=== PATIENT | female | born 1990 | race Caucasian/White ===

== ENCOUNTER 2019-01-03 23:06 | Emergency (ER) | payer OTHER ==
[~2019-01-03] VITALS: Ht 177.8 cm; Wt 55.0 kg
[2019-01-03 23:12] VITALS: BP 119/82
== END 2019-01-04 00:09 | disposition home or self-care (01) ==
LOC: ER 23:07
DX: S51.812D Laceration without foreign body of left forearm, subsequent encounter (principal); X58.XXXD Exposure to other specified factors, subsequent encounter
CPT/HCPCS: 99281